=== PATIENT | female | born 1950 | race Caucasian/White ===

== ENCOUNTER 2017-01-23 09:43 | Day surgery (SDC) | payer OTHER ==
[~2017-01-23] VITALS: Ht 157.5 cm; Wt 54.5 kg
[~2017-01-23 09:43] MED LIST: AMIT10TA13 PO; E.E.200S PO; ESTR2TAB PO; FLECTOR PATCH TOP; LORA-392 PO; LORA10TA7 PO; MEDR2.5 PO; MINERALS PO; PHEN30TA32 PO; PHEN60TA PO; RANI300T PO; SUCR1TAB6 PO; SYNT137T PO; TEST-25 TOP; ZOFR4TAB3 PO
[2017-01-23 10:15] VITALS: BP 118/63; PULSE 77; RESP 20; TEMP 97.4; O2SAT 98
[2017-01-23] MEDS ORDERED: TRIA0.022 TOPICAL (10:36)
[2017-01-23] MEDS ORDERED: MEDR2.5T4 PO (10:36)
[2017-01-23] MEDS ORDERED: DEXI60CA2 PO (10:36)
[2017-01-23] MEDS ORDERED: SODIPOW PO (10:36)
[2017-01-23] MEDS ORDERED: OMEP40CA2 PO (10:36)
[2017-01-23] MEDS ORDERED: LIOT5TAB3 PO (10:36)
[2017-01-23] MEDS ORDERED: estratest PO (10:36)
[2017-01-23] MEDS ORDERED: LEVO1TAB50 PO (10:36)
[2017-01-23] MEDS ORDERED: PHENO60 PO (10:36)
[2017-01-23] MEDS ORDERED: LEVO112T2 PO (10:36)
[2017-01-23] MEDS ORDERED: SODIUM CHLOR 0.9% 1000 ML IV SCH (11:00)
[2017-01-23] MEDS ORDERED: LIDOCAINE HCL 1% 20 ML VIAL ONE (11:01)
[2017-01-23 11:06] LABS: AUTOMATED NEUTROPHIL # 1.3 TH/MM3 (1.8-7.7); BASOPHIL % 1.1 % (0.0-2.0); EOSINOPHIL # 0.1 TH/MM3 (0-0.4); EOSINOPHIL % 5.2 % (0.0-4.0); HEMATOCRIT 35.3 % (35.0-46.0); LYMPH % 36.3 % (9.0-44.0); MEAN CELL VOLUME 99.9 FL (80.0-100.0); MEAN CORPUSCULAR HEMOGLOBIN 33.9 PG (27.0-34.0); MEAN CORPUSCULAR HGB CONC 33.9 % (32.0-36.0); MONO % 11.5 % (0.0-8.0); NEUT % 45.9 % (16.0-70.0); PLATELET COUNT 62 TH/MM3 (150-450); RED BLOOD COUNT 3.54 MIL/MM3 (4.00-5.30); RED CELL DISTRIBUTION WIDTH 13.4 % (11.6-17.2); WHITE BLOOD COUNT 2.8 TH/MM3 (4.0-11.0)
[2017-01-23] MEDS ORDERED: MIDAZOLAM HCL 5 MG/5 ML VIAL ONE (11:09)
[2017-01-23 11:16] LABS: HEMO FLAGS AUTO DIFF
--- NOTE | 2017-01-23 11:38 | PD.RAD ---
Post CT Procedure Prog Note Pre Procedure Diagnosis: (1) Thrombocytopenia Post Procedure Diagnosis: (1) Thrombocytopenia Procedure Date: Jan 23, 2017 Supervising Radiologist: Horace Lucas Proceduralist/Assist: manan madrid Estimated blood loss: 2-3cc Anesthesia: Conscious Sedation Plan of Activity Patient to Unit: [facility] Patient Condition: Good See PACS Report for procedural detail/treatment Horace Lucas MD Jan 23, 2017 11:38
[2017-01-23 11:40] VITALS: BP 103/63; PULSE 69; RESP 20; TEMP 97.6; O2SAT 98
[2017-01-23 11:52] VITALS: BP 104/56; PULSE 60; RESP 17; O2SAT 96
[2017-01-23 12:13] LABS: BONE MARROW PROCESSING COMPLETE; IRON STAIN DONE; JENNER GIEMSA STAIN DONE
[2017-01-23 12:22] VITALS: BP 93/53; PULSE 56; RESP 18; O2SAT 97
[2017-01-23 12:34] LABS: SCAN/DIFF AUTO DIFF CONFIRMED
[2017-01-23 12:52] VITALS: BP 115/57; PULSE 57; RESP 17; O2SAT 97
[2017-01-23 13:22] VITALS: BP 110/58; PULSE 62; RESP 18; O2SAT 98
--- NOTE | 2017-01-23 16:01 | RADRPT ---
EXAM DATE/TIME: 01/23/2017 11:18 [place] COMPARISON: No previous studies available for comparison. INDICATIONS : Thrombocytopenia. SEDATION TIME: 30 minutes BIOPSY SITE: Right iliac MEDICATION(S): 1.) 1.5 mg midazolam (Versed) IV 2.) 75 mcg fentanyl (Sublimaze) IV DEVICE(S): 1.) 11 gauge Bone biopsy needle MEDICAL HISTORY : ITP. SURGICAL HISTORY : None. ENCOUNTER: Initial ACUITY: 1 day PAIN SCORE: 0/10 LOCATION: Right iliac A total of one core specimen(s) were obtained and sent to the laboratory for pathologic evaluation. PROCEDURE: 1. CT guided bone marrow biopsy. 2. Conscious sedation with continuous EKG and oximetry monitoring. 3. EKG and oximetry remained stable throughout the procedure. Prior to the procedure informed consent was obtained. Any appropriate prior imaging studies were rev iewed. Using automated exposure control and adjustment of the mA and/or kV according to patient size , radiation dose was kept as low as reasonably achievable to obtain optimal diagnostic quality images . DICOM format image data is available electronically for review and comparison. The site was prepped in a sterile fashion. Full sterile technique was used, including cap, mask, casey rile gloves and gown and a large sterile sheet. Hand hygiene and 2% chlorhexidine and/or betadine/al cohol prep was utilized per protocol for cutaneous antisepsis. The skin and subcutaneous tissues wer e infiltrated with local anesthetic solution. With CT guidance the previously identified target was localized. Biopsy was performed using the presc ribed needle as above. Following biopsy marrow aspiration was performed with repeat puncture. Adequa te hemostasis was obtained with compression at the puncture site. Follow-up CT scan reveals no hemorrhage. Conscious sedation was performed with the prescribed dosages and duration as above in the presence of an independent trained radiology nurse to assist in the monitoring of the patient. EKG and oximetry remained stable throughout the procedure. The patient tolerated the procedure well and there were no complications. The patient was sent to Radiology Outpatient Unit in stable condition. CONCLUSION: 1. Uncomplicated CT guided bone marrow aspirate. 2. Uncomplicated CT guided bone marrow biopsy. Horace Lucas MD on January 23, 2017 at 15:59 Board Certified Radiologist. This report was verified electronically.
[2017-01-24] MEDS ORDERED: FLEC1.3D5 TOPICAL (10:58)
== END 2017-01-23 13:40 | disposition home or self-care (01) ==
LOC: HRAD 09:43 → HRIP 09:45 → HRAD 13:40
PROVIDERS: ATTEND Internal Medicine
DX: D69.3 Immune thrombocytopenic purpura (principal); D72.819 Decreased white blood cell count, unspecified
CPT/HCPCS: 38221; 77012; 85025; 85097; 88184; 88185; 88237; 88264; 88280; 88305; 88311; 88313; 99152; 99153; C1830; J2250; J3010; J7030